=== PATIENT | female | born 1935 | race Caucasian/White ===

== ENCOUNTER 2017-02-03 14:57 | Emergency (ER) | payer OTHER, BC ==
[~2017-02-03] VITALS: Ht 160 cm; Wt 69.0 kg
[2017-02-03] MEDS ORDERED: TYLENOL WITH C1 EACH PO (23:31)
[2017-02-04 00:05] VITALS: BP 145/60
== END 2017-02-04 00:31 | disposition home or self-care (01) ==
LOC: EME 14:57
DX: S00.83XA Contusion of other part of head, initial encounter (principal); S13.4XXA Sprain of ligaments of cervical spine, initial encounter; S63.502A Unspecified sprain of left wrist, initial encounter; S80.01XA Contusion of right knee, initial encounter; S00.81XA Abrasion of other part of head, initial encounter; W01.198A Fall on same level from slipping, tripping and stumbling with subsequent striking against other object, initial encounter; Z79.01 Long term (current) use of anticoagulants
CPT/HCPCS: 70450; 72125; 73110; 73564; 99281; 99284